=== PATIENT | female | born 1935 | race Caucasian/White ===

== ENCOUNTER → 2019-01-21 | Outpatient (CLI) | payer MEDICARE, OTHER ==
[~2019-01-21] VITALS: Ht 157.5 cm; Wt 91.6 kg
[~2019-01-21] MED LIST: HYDR1TAB PO; LIDOCAINE 1% INJ 20 ML 20 ML VIAL INJ ONE; LISI-552 PO
--- NOTE | 2019-01-21 20:17 | Diagnostic Imaging Report ---
INDICATION: Left breast mass. EXAMINATION: Patient presents for ultrasound-guided biopsy. PROCEDURE: Patient was brought to the procedure room and placed on the bed in a supine position. Ultrasound imaging over the left breast was performed to evaluate appropriate entry site. Skin of the left breast was then prepped and draped in the usual sterile fashion. A small amount of 1% lidocaine was utilized for local anesthesia. There is a somewhat ill-defined hypoechoic mass in the deep aspect of the left breast, at approximately the 2:30 location. This is near the chest wall. This is the smaller of the two lesions. Only a single pass could be made into the lesion at this location with a 14-gauge Achieve needle. No additional passes were made due to the deep nature of the lesion lying adjacent to the chest wall. A needle could not be safely fired. One pass was made, however. A clip was deployed. Hemostasis was obtained using manual compression. IMPRESSION: Attempted ultrasound-guided core biopsy of the deep hypoechoic mass at the 2:30 location of the left breast, 9 cm from the nipple. This is the smaller of the two lesions. A single pass was made and sent to pathology. This was marked with the S clip. Dictated by: Dictated on workstation # [id number]
--- NOTE | 2019-01-21 20:21 | Diagnostic Imaging Report ---
INDICATION: Left breast mass. Patient presents for ultrasound-guided biopsy. PROCEDURE: Patient was brought to the procedure room and placed on the bed in the supine position. Ultrasound imaging over the left breast was performed to evaluate appropriate entry site. The left breast was then prepped and draped in the usual sterile fashion. A small amount of 1% lidocaine was utilized for local anesthesia. The dominant hypoechoic mass at the 2:30 location, 8 cm from the nipple was biopsied. Total of three passes were made with a 14-gauge Achieve needle. An R marker clip was deployed. Hemostasis was performed using manual compression. IMPRESSION: Successful ultrasound-guided core biopsy of the dominant hypoechoic mass at the 2:30 location of the left breast, 8 cm from the nipple. Pathology results are currently pending. Dictated by: Dictated on workstation # [id number]
--- NOTE | 2019-01-24 10:16 | Diagnostic Imaging Report ---
Indication: Status post left breast ultrasound-guided biopsy. CC, exaggerated CC and MLO 2-D mammography was performed. Lobulated masses in the left axilla are noted. There appear to be 2 marker clips in left axilla from recent biopsy. There is lumpectomy changes in the upper central left left breast. There is some spiculated density adjacent to some lumpectomy clips. There are occasional benign calcifications. Impression: Status post ultrasound biopsy of lobulated masses in the left axilla with marker clips in place. Dictated by: Dictated on workstation # [id number]
== END ==
LOC: RAD 11:15
PROVIDERS: ATTEND Surgery
DX: C50.912 Malignant neoplasm of unspecified site of left female breast (principal)
CPT/HCPCS: 19083; 19084; 88305; 88360

== ENCOUNTER 2019-02-07 05:37 | Outpatient (CLI) | payer MEDICARE, OTHER ==
[~2019-02-07] VITALS: Ht 149.9 cm; Wt 93.9 kg
[~2019-02-07 05:37] MED LIST changes: -LIDOCAINE 1% INJ 20 ML 20 ML VIAL INJ ONE; -LISI-552 PO
[2019-02-07] MEDS ORDERED: LISI-552 PO (10:10)
[2019-02-09] MEDS ORDERED: LACTATED RINGERS 1,000 ML IV PRN (07:47)
[2019-02-09] MEDS ORDERED: ceFAZolin 2 GM/50 ML NS 50 ML IV ONE (08:00)
== END 2019-02-07 10:13 | disposition home or self-care (01) ==
LOC: PREOP 05:37
PROVIDERS: ATTEND Surgery
DX: Z01.818 Encounter for other preprocedural examination (principal)

== ENCOUNTER 2019-02-09 07:37 | Day surgery (SDC) | payer MEDICARE, OTHER ==
[~2019-02-09] VITALS: Ht 149.9 cm; Wt 93.9 kg
[2019-02-09] VITALS (14 sets, daily range): BP systolic 17–180; BP diastolic 7–81
[~2019-02-09 07:37] MED LIST changes: +LISI-552 PO
[2019-02-09] MEDS ORDERED: LIDOCAINE 1% INJ 20 ML 20 ML VIAL INJ ONE ×2 (08:30→09:22)
[2019-02-09] MEDS: LIDOCAINE 1% INJ 20 ML 20 ML VIAL ONE ×2 (09:22→11:42)
[2019-02-09] MEDS ORDERED: ceFAZolin 2 GM/50 ML NS 50 ML ONE (10:09)
[2019-02-09] MEDS ORDERED: fentaNYL INJECTION 100 MCG/2 ML AMP ONE (11:03)
[2019-02-09] MEDS ORDERED: DEXAMETHASONE 10 MG/ML (DECADRON) 1 ML VIAL ONE (11:03)
[2019-02-09] MEDS ORDERED: SEVOFLURANE (ULTANE) 15 ML INHAL SOLN ONE (11:03)
[2019-02-09] MEDS ORDERED: proPOfol 200 MG/20 ML (DIPRIVAN) VIAL IV ONE (11:03)
[2019-02-09] MEDS ORDERED: ONDANSETRON 4 MG/2 ML (SDV) Z0FRAN ONE (11:03)
[2019-02-09] MEDS ORDERED: LIDOCAINE PF 2% 5 ML (XYLOCAINE) VIAL ONE (11:03)
[2019-02-09] MEDS ORDERED: BUP/EPI 0.5% 1:200,000 (SENSORCAINE) 30 ML VIAL ONE (11:06)
[2019-02-09] MEDS ORDERED: ceFAZolin 2 GM/NS 50 ML IVPB IV ONE (12:15)
[2019-02-09] MEDS ORDERED: LACTATED RINGERS 1,000 ML IV PRN (12:24)
[2019-02-09] MEDS ORDERED: HYDROmorphone 2 MG/ML VIAL (DILAUDID) IV ONE (12:45)
[2019-02-09] MEDS ORDERED: ONDANSETRON 4 MG/2 ML (SDV) Z0FRAN IVP PRN (12:45)
--- OUTSIDE RECORDS SUMMARY | 2019-02-09 12:49 | XMS REPORT | Continuity of Care Document ---
Author Author [facility] Organization [facility] Address Unknown Phone Unavailable Care Team Providers Care Continuity Tester Name Role Phone JAXSON HARDEN DO PP Insurance Providers Payer Name Policy Number Subscriber Name Relationship Comm Crossover Enter Ins Name [id number] Florecita Van Self / Same As Patient Wps Medicare [id number] Florecita Van Self / Same As Patient Advance Directives Directive Response Recorded Date Advance Directives N 04/27/13 9:53am Health Care Power of Nursing Aide N 04/27/13 9:53am Organ Donor N 04/27/13 9:53am Problems No Known Problems or Medical conditions. Allergies, Adverse Reactions, Alerts Allergen Type Severity Reaction Last Updated No Known Drug Allergies 03/30/13 Medications Medication Dose Units Route Sig Qty Days Acetaminophen/Hydrocodone Bitart (Vicodin 5-500 Tablet) 1 - 2 Each PO Q4HR PRN 30 Immunizations Name Given Type pneumococcal polysaccharide PPV23 04/28/13 A Response Recorded Date/Time Status not known Unknown Results No Known Relevant Diagnostic Tests, Laboratory Data and/or Discharge Summary. Procedures Procedure Code Date EXCISION BREAST LESION 04/27/13 PLACE NEEDLE WIRE BREAST 04/27/13 MRSA Screen 04/21/13
--- OUTSIDE RECORDS SUMMARY | 2019-02-09 12:49 | XMS REPORT | Continuity of Care Document ---
Author Organization Unknown Address Unknown Allergies Active Description Code Type Severity Reaction Onset Reported/Identified Relationship to Patient Clinical Status Yes No Known Drug Allergies [id number] Drug Allergy Unknown N/A 02/07/2019 Medications There is no data. 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 Results There is no data. Encounters ACCT No. Visit Date/Time Discharge Status Pt. Type Provider Facility Loc./Unit Complaint [id number] 02/07/2019 05:37:00 02/07/2019 10:13:00 DIS Outpatient SHAUN MARTELL DO [facility] PREOP LEFT BREAST WIRE GUIDED LUMPECTOMY [id number] 01/21/2019 11:15:00 01/21/2019 23:59:59 CLS Outpatient SHAUN MARTELL DO [facility] RAD LEFT BREAST MASS [id number] 10/10/2013 13:07:00 01/08/2014 00:01:00 DIS Outpatient CHAITANYA OLIVAREZ MD [facility] ONC [id number] 06/20/2013 13:37:00 09/18/2013 00:01:00 DIS Outpatient CHAITANYA OLIVAREZ MD [facility] ONC [id number] 04/27/2013 07:00:00 04/28/2013 18:00:00 DIS Outpatient [id number] 04/21/2013 11:43:00 04/21/2013 23:59:59 CLS Outpatient [id number] 03/30/2013 09:18:00 03/30/2013 23:59:59 CLS Outpatient [id number] 02/09/2019 08:45:00 PEN Preadmit SHAUN MARTELL DO [facility] RAD BREAST CA [id number] 01/09/2014 00:00:00 Document Registration
--- NOTE | 2019-02-09 13:03 | Anesthesia-General Post-Op ---
General Patient Condition Mental Status/LOC: Same as Preop Cardiovascular: Satisfactory Nausea/Vomiting: Absent Respiratory: Satisfactory Pain: Controlled Complications: Absent Post Op Complications Complications None Follow Up Care/Instructions Patient Instructions None needed. Anesthesia/Patient Condition Patient Condition Patient is doing well, no complaints, stable vital signs, no apparent adverse anesthesia problems. No complications reported per nursing. SHAMEKA SHAW CRNA Feb 09, 2019 13:03
--- NOTE | 2019-02-09 13:20 | Progress Note-Pre Operative ---
Pre-Operative Progress Note H&P Reviewed The H&P was reviewed, patient examined and no changes noted. Time Seen by Provider: 10:35 Date H&P Reviewed: Feb 09, 2019 Time H&P Reviewed: 10:34 Pre-Operative Diagnosis: Left breast CA, recurrent SHAUN MARTELL DO Feb 09, 2019 13:19
[2019-02-09] MEDS ORDERED: ACHD5005 PO (13:21)
--- NOTE | 2019-02-09 13:21 | Progress Note-Post Operative ---
Post-Operative Progess Note Surgeon (s)/Staying Machine Operator (s) Surgeon SHAUN MARTELL DO Staying Machine Operator: none Pre-Operative Diagnosis Left breast CA, recurrent Post-Operative Diagnosis same pending pathology Procedure & Operative Findings Date of Procedure 02/09/19 Procedure Performed/Findings Left breast bx with needle localization x 2 Anesthesia Type LMA Estimated Blood Loss Estimated blood loss (mL): appx 20ml Specimens/Packing Specimens Removed Left breast tissue with wires SHAUN MARTELL DO Feb 09, 2019 13:21
--- NOTE | 2019-02-09 13:22 | Discharge Inst-Surgical ---
Discharge Inst-Surgical Depart Medication/Instructions New, Converted or Re-Newed RX: RX Given to Pt/Family Patient Instructions Follow up Appt: Make appointment for 1 week. [phone] Instructions: No lifting greater than 20 pounds. No strenuous activity. May shower in 24 hours, no tub bath or soaking. Use incentive spirometer at home as directed. No Smoking Skin/Wound Care: May remove bandages in am. You need to leave the Dermabond on incision it will fall off on it's own. Symptoms to Report: Appetite Changes, Extremity Discoloration, Numbness/Tingling, Swelling Increased, Bleeding Excessive, Eyesight Changes, Pain Increased, Urine Color Change, Constipation(Persistent), Fever over 101 degree F, Pain/Pressure in chest, Urinating Difficulty, Cough Up/Vomit Blood, Heart Beat Irreg/Pounding, Pain/Pressure in jaw, Cramps in feet or legs, Lightheadedness, Pain/Pressure in shoulder, Diarrhea(Persistent), Memory Changes Suddenly, Questions/Concerns, Weight gain consecutive days, Dizziness/Fainting, Nausea/Vomiting, Shortness of Breath, Weight gain over 2 pounds If questions or concerns contact your physician Or seek help at emergency department. Activity Activity as Tolerated: Yes Activity Instructions: Avoid Stress to Incision Driving Instructions: No Driving/Refer to Dr. Thornton Discharge Diet: No Restrictions Diet After 24 Hours: Clear Liquid if Nauseous If Any Problems/Questions/Issu: Contact Your Physician, Go to Emergency Room Skin/Wound Care Infection Signs and Symptoms: Increased Redness, Foul Odor of Wound, Increased Drainage, Skin Itchy or Has a Rash, Increased Swelling, Temperature Above 101 F Bathing Instructions: Shower Stitches/Mel/Dermabond Dis: Dermabond Ice Pack: Ice On and Off Site SHAUN MARTELL DO Feb 09, 2019 13:22
--- NOTE | 2019-02-09 14:44 | Diagnostic Imaging Report ---
INDICATION: Left breast mass. Patient presents for hook wire localization. TECHNIQUE: The patient was brought to the procedure room and placed on the table in the supine position. Ultrasound imaging over the upper outer left breast was performed to evaluate for an appropriate entry site. The left breast was prepped and draped in the usual sterile fashion. A small amount of 1% lidocaine was utilized for local anesthesia. A localizing needle was advanced and placed with its tip just anterior to the deep hypoechoic mass at the 2:30 location 8 cm from the nipple. The mass appears to be against the chest wall. A hook wire was placed through the needle and deployed. The needle was removed. The wire was fixed to the patient's skin. IMPRESSION: Hook wire localization of the deep hypoechoic mass against the chest wall at the 2:30 location of the left breast, 8 cm from the nipple. Dictated by: Dictated on workstation # [id number]
--- NOTE | 2019-02-09 14:48 | Diagnostic Imaging Report ---
INDICATION: Left breast masses. Patient is status post hook wire placement. TECHNIQUE: CC and ML 2D mammographic views of the left breast were obtained with CAD. FINDINGS: Images demonstrate hook wires in the axillary portions of the left breast. One hook wire appears to pass through the dominant more superficial lesion in the left axilla. A second hook wire has the tip just superficial to the deeper smaller lesion in the left axilla. A specimen radiograph was obtained demonstrating both hook wires within the specimen. One hook wire appears to pass through the dominant lesion. The smaller lesion is located at coordinates 12 through 14 and E through G. The smaller lesion does appear to extend to the margin along coordinate E. The dominant lesion is located from coordinates 6 through 10 and E through I. IMPRESSION: Specimen radiograph, as described. Dictated by: Dictated on workstation # [id number]
--- NOTE | 2019-02-09 14:52 | Diagnostic Imaging Report ---
INDICATION: Left breast mass. Patient presents for hookwire localization using sonographic guidance. TECHNIQUE: The patient was brought to the procedure room and placed on the table in the supine position. Ultrasound imaging over the left breast was performed to evaluate for an appropriate entry site. The left breast was then prepped and draped in the usual sterile fashion. A localizing needle was advanced through the solid mass at the 2:30 location of the left breast 9 cm from the nipple. A hookwire was then placed through the needle and deployed. The needle was removed. The patient tolerated the procedure well and was sent to Surgery in satisfactory condition. IMPRESSION: Successful hookwire localization of the hypoechoic mass at the 2:30 location of the left breast 9 cm from the nipple using sonographic guidance. Dictated by: Dictated on workstation # [id number]
--- NOTE | 2019-02-09 23:25 | OPERATIVE REPORT ---
DATE OF SERVICE: 02/09/2019 PREOPERATIVE DIAGNOSIS: Left breast cancer at two different areas. POSTOPERATIVE DIAGNOSIS: Left breast cancer at two different areas, pending pathology. PROCEDURE PERFORMED: Left Breast Lumpectomy with needle localization x 2. SURGEON: Kin Pedersen DO. CHEF HEAD: None. ANESTHESIA: LMA. SPECIMENS: Breast multiple masses with two needles and then a separate mass sent. BLOOD LOSS: Approximately 20 mL. FLUIDS: Per Anesthesia. POSTOPERATIVE CONDITION: Stable. INDICATION FOR PROCEDURE: The patient is an 83-year-old female, who unfortunately diagnosed recently with breast cancer. She had 2 masses in the left upper outer quadrant, basically the axillary tail, biopsy of both came back as a cancer. The patient has a history of breast cancer and she had a lumpectomy and a sentinel node biopsy, but the patient refused to do any chemotherapy or radiation. When she got this diagnosis, we had a long discussion regarding her options including mastectomy, which is what I recommended. She has absolutely refused and stated she only wanted the "cancer removed." She just wanted the 2 lumps removed. I told her that doing this could possibly miss cancer. There may be more in there and she absolutely was going to refuse chemotherapy at this time as well as radiation and did not want to do any except for remove the cancer, so this is what we did. FINDINGS: The patient had the 2 masses localized with needle localization and then removed and sent to pathology. PROCEDURE NOTE: After informed consent was obtained, the patient was sent to radiology first to get needle localization. Radiologist stated he put one needle through the more superficial lesion than in the deep lesion because it was so deep and right on the chest wall, he will only put the needle up to the lesion. She was then brought down to the operating room, placed on the table in supine position, sterilely prepped and draped in normal fashion. An incision was made in the axilla right along the wires and carried down thru the skin into subcutaneous tissue with a #15 blade and then deepened down thru the subcutaneous tissue with Bovie electrocautery going around the tissue and needles trying to track down to feel the mass, could actually feel this mass and then started dissecting down around the needles and mass, I felt like there was more than one mass, went all the way down right on to the chest wall and used Bovie electrocautery. I held the incision open with some Ledezma's, finally able to remove this and passed this off the table. I sutured once at distally where the chest wall was and then one superficially, which was closer to the skin. This was then sent to radiology and then to pathology. Palpating in there, I felt another mass, grasped this with a Shannon and then able to dissect around with Bovie electrocautery. There were a couple of vessels that were bleeding. These were controlled with clips, copiously irrigated with sterile water. Hemostasis was obtained. Dried this out, palpated around, did not feel any other masses, felt like the masses were possibly axillary tail and lymph node, everything will be sent to pathology. At this point, I then elected to close the incision, closing the deep tissue with 3-0 Vicryl three interrupted sutures and closed the skin with 4-0 undyed Monocryl in a running subcuticular fashion. Area was cleaned and dried. Dermabond placed as well as a pressure dressing. The patient then transferred to the recovery room in stable condition. Sponge, instrument and needle count correct at the end of the case. Job ID: [id number] DocumentID: [id number] Dictated Date: 02/09/2019 15:23:32 Tree Surgeon Date: 02/09/2019 20:31:24 Dictated By: DO CALVIN CHAVARRIA
== END 2019-02-09 16:05 | disposition home or self-care (01) ==
LOC: RAD 07:37
PROVIDERS: ATTEND Surgery
DX: C50.412 Malignant neoplasm of upper-outer quadrant of left female breast (principal)
CPT/HCPCS: 19285; 19286; 76098; 87081

== ENCOUNTER 2019-03-09 11:16 | Outpatient (RCR) | payer MEDICARE, OTHER ==
[2019-02-25 11:47] LABS: BUN/CREATININE RATIO 24; CREATININE SERUM 0.88 MG/DL (0.60-1.30); GFR ESTIMATED > 60
[~2019-03-09 11:16] MED LIST changes: +ACHD5005 PO
== END 2019-05-26 | disposition home or self-care (01) ==
LOC: ONC 11:16
PROVIDERS: ATTEND Internal Medicine Hematology & Oncology
DX: C50.412 Malignant neoplasm of upper-outer quadrant of left female breast (principal); Z17.0 Estrogen receptor positive status [ER+]; I10 Essential (primary) hypertension; H53.8 Other visual disturbances; E66.9 Obesity, unspecified; Z68.41 Body mass index [BMI] 40.0-44.9, adult; Z79.899 Other long term (current) drug therapy
CPT/HCPCS: 36415; 82565; 84520; 99213; 99214